=== PATIENT | male | born 1970 | race Caucasian/White ===

== ENCOUNTER 2017-08-03 11:28 | Emergency (ER) | payer OTHER ==
[~2017-08-03] VITALS: Ht 182.9 cm; Wt 99.8 kg
[~2017-08-03 11:28] MED LIST: ASPIRIN325; NAPROSYN500 MG PO; ROBAXIN 750 MG750 M1 PO
[2017-08-03] MEDS ORDERED: APAP650 PO (11:46)
[2017-08-03] MEDS ORDERED: KEFLEX500 M1 PO (12:42)
[2017-08-03] MEDS ORDERED: BACTRIM DS TAB1 EACH PO (12:42)
[2017-08-03 13:03] VITALS: BP 138/88
== END 2017-08-03 13:04 | disposition home or self-care (01) ==
LOC: M.ERS 11:28
DX: S81.012A Laceration without foreign body, left knee, initial encounter (principal); W01.0XXA Fall on same level from slipping, tripping and stumbling without subsequent striking against object, initial encounter; Y93.89 Activity, other specified; Y92.89 Other specified places as the place of occurrence of the external cause; Y99.8 Other external cause status

== ENCOUNTER 2020-10-05 10:09 | Emergency (ER) | payer OTHER ==
[~2020-10-05] VITALS: Ht 182.9 cm; Wt 113.4 kg
[~2020-10-05 10:09] MED LIST changes: +APAP650 PO; +BACTRIM DS TAB1 EACH PO; +KEFLEX500 M1 PO
[2020-10-05 11:30] LABS: CALCIUM 9.1 mg/dL (8.5-10.1); POTASSIUM 4.5 mmol/L (3.5-5.1)
[2020-10-05] MEDS ORDERED: FLEXERIL PO (13:00)
[2020-10-05] MEDS ORDERED: HYDROCODON-ACE1 EAC7 PO (13:00)
[2020-10-05] MEDS ORDERED: IBUPROFEN 800800 M1 PO (13:00)
[2020-10-05 13:10] VITALS: BP 141/99
--- NOTE | 2020-10-07 13:47 | EKG ---
[place] [address] ELECTROCARDIOGRAM REPORT Name: VERONICA GAY Room: [facility]#: [id number] Admission: 10/05/20 Attend Phys: Discharge: 10/05/20 Date of : 72 Date of Service: 10/05/20 1105 Report #: [id number] THIS REPORT FOR: //name// [facility] ED Test Date: 2020-10-05 Test Time: 11:05:20 Pat Name: VERONICA GAY Department: Room: Gender: Boiler Tester: [facility] : 1970 Requested By: Kuldeep Culp Order Number: [id number] MD: Laron Arevalo Measurements Intervals [place] Rate: 104 P: 69 AL: 144 QRS: 78 QRSD: 100 T: 55 QT: 345 QTc: 454 Interpretive Statements Sinus tachycardia Baseline wander in lead(s) I,II,aVR No previous ECG available for comparison Electronically Signed On 10-07-2020 13:47:44 CDT by Laron Arevalo [email or web address] <ELECTRONICALLY SIGNED> By: Laron Arevalo MD, [facility] 10/07/20 1347 1105 1105 Laron Arevalo MD, [facility] /EPI
== END 2020-10-05 13:12 | disposition home or self-care (01) ==
LOC: M.ERS 10:09
PROVIDERS: Emergency Medicine Emergency Medical Services
DX: S42.122A Displaced fracture of acromial process, left shoulder, initial encounter for closed fracture (principal); Z85.828 Personal history of other malignant neoplasm of skin; Z88.0 Allergy status to penicillin; Z88.2 Allergy status to sulfonamides; X50.9XXA Other and unspecified overexertion or strenuous movements or postures, initial encounter; Y93.89 Activity, other specified; Y92.89 Other specified places as the place of occurrence of the external cause; Y99.8 Other external cause status